=== PATIENT | female | born 1985 | race Hispanic/Latino ===

== ENCOUNTER 2017-08-06 11:40 | Emergency (ER) | payer OTHER ==
[2017-08-06 11:49] VITALS: BMI 28.1
[2017-08-06] MEDS ORDERED: Sodium Chloride 0.9% 1,000 ML IV STA (12:23)
[2017-08-06 13:05] LABS: URINE BILIRUBIN NEGATIVE (NEGATIVE); URINE BLOOD MODERATE (NEGATIVE); URINE GLUCOSE (UA) NEGATIVE (NEGATIVE); URINE KETONE NEGATIVE (NEGATIVE); URINE LEUKOCYTE ESTERASE NEGATIVE Leu/uL (NEGATIVE); URINE PROTEIN NEGATIVE mg/dL (<30 mg/dL); URINE UROBILINOGEN 0.2 E.U./dL (<1 E.U./dL)
[2017-08-06 13:08] LABS: URINE APPEARANCE CLEAR (CLEAR); URINE COLOR LIGHT YELLOW (YELLOW)
[2017-08-06 13:11] LABS: BASO # 0.04 K/mm3 (0.0-2.0); BASO % 0.3 % (0.0-3.0); EOS # 0.2 (0.0-0.7); EOS % 1.6 % (1.5-5.0); GRAN # 9.16 (1.4-6.5); HEMATOCRIT 37.6 % (36.0-48.0); LYMPH # 2.7 (1.2-3.4); LYMPH % 20.7 % (22.0-35.0); MEAN CELL VOLUME 82.3 fl (80.0-105.0); MEAN CORPUSCULAR HEMOGLOBIN 29.5 pg (25.0-35.0); MEAN CORPUSCULAR HGB CONC 35.9 g/dl (31.0-37.0); MEAN PLATELET VOLUME 8.9 fl (7.0-11.0); MONO # 0.8 (0.1-0.6); MONO % 6.4 % (1.0-6.0); RED CELL DISTRIBUTION WIDTH 12.2 % (11.5-14.5); WHITE BLOOD COUNT 12.9 10^3/ul (4.5-11.0)
[2017-08-06 13:14] LABS: INR 1.06 (0.93-1.08); PARTIAL THROMBOPLASTIN TIME 29.6 Seconds (25.1-36.5)
--- NOTE | 2017-08-06 13:16 | ED PDOC ---
Arrival/HPI - History of Present Illness Time/Duration: 1-3 hours Symptom Onset: Sudden Activities at Onset: Light Context: Walking <Gabino Rowan - Last Filed: 08/06/17 19:50> - General Historian: Patient <Carlo Palafox DO - Last Filed: 08/06/17 20:56> - General Chief Complaint: Female Genitourinary Time Seen by Provider: 08/06/17 12:22 - History of Present Illness Narrative History of Present Illness (Text): 08/06/17 13:12 Mrs. Goddard is a 32 year old at 8w3d gestation (AMTEO of 03/15/18 by FDLMP of 06/08/17) with no significant past medical history who presents to the [facility] with a chief complaint of vaginal bleeding that started approximately 90 minutes [employer]VIL WORK[employer]. Patient reports that she was walking her dog in the park when she suddenly experienced vaginal bleeding that she reports as "quite a bit" and enough to soak her clothes. She denies any non-bloody vaginal discharge, malodorous discharge, vaginal itching, abdominal cramping, LOF, pain with urination, hematuria, hematochezia, or recent sexual intercourse. Patient also denies fever, chills, headache, changes in her vision, sore throat, chest pain, SOB, cough, abdominal pain, N/V/D/C, rashes or any numbness/tingling/weakness. OB History: Current Gestation: details in HPI Patient has regular follow up with her grain blender History: Triad: 15/regular/5 days Denies history of STI's, fibroids, ovarian cysts, history of abnormal pap smears or any personal or family history of breast/uterine/ovarian/vaginal/ cervical malignancies (Gabino Rowan) Past Medical History - Provider Review Nursing Documentation Reviewed: Yes - Travel History Have you recently traveled outside [place] w/in the past 3 mons?: No - Past History Past History: No Previous - Infectious Disease Hx of Infectious Diseases: None - Tetanus Immunization Tetanus Immunization: Up to Date - Reproductive Menopause: No - Past Medical History Past Medical History: No Previous - Psychiatric Hx Substance Use: No <Gabino Rowan - Last Filed: 08/06/17 19:50> Family/Social History - Physician Review Nursing Documentation Reviewed: Yes Family/Social History: No Known Family HX Smoking Status: Never Smoked Hx Alcohol Use: No Hx Substance Use: No <Gabino Rowan - Last Filed: 08/06/17 19:50> Allergies/Home Meds <Gabino Rowan - Last Filed: 08/06/17 19:50> <Carlo Palafox DO - Last Filed: 08/06/17 20:56> Allergies/Adverse Reactions: Allergies No Known Allergies Allergy (Verified 08/06/17 11:49) Home Medications: Home Meds Medication Instructions Recorded Confirmed No Known Home Med 08/06/17 08/06/17 Review of Systems - Physician Review All systems were reviewed & negative as marked: Yes - Review of Systems Constitutional: Normal. absent: Fevers, Night Sweats Eyes: Normal. absent: Vision Changes ENT: Normal Respiratory: Normal. absent: SOB, Cough Cardiovascular: Normal. absent: Chest Pain, Palpitations Gastrointestinal: Normal. absent: Abdominal Pain, Constipation, Diarrhea, Nausea, Vomiting, Hematochezia Genitourinary Female: Vaginal Bleeding (As per HPI). absent: Normal, Dysuria, Frequency, Hematuria, Vaginal Discharge Musculoskeletal: Normal. absent: Arthralgias, Back Pain, Neck Pain, Joint Swelling, Myalgias Skin: Normal. absent: Rash Neurological: Normal. absent: Headache Endocrine: Normal Hemo/Lymphatic: Normal Psychiatric: Normal <Gabino Rowan - Last Filed: 08/06/17 19:50> Physical Exam Vital Signs Reviewed: Yes Temperature: Afebrile Blood Pressure: Normal Pulse: Regular Respiratory Rate: Normal Appearance: Positive for: Well-Appearing, Non-Toxic, Comfortable Pain Distress: None Mental Status: Positive for: Alert and Oriented X 3 - Systems Exam Head: Present: Atraumatic, Normocephalic Pupils: Present: PERRL Extroacular Muscles: Present: EOMI Conjunctiva: Present: Normal Mouth: Present: Moist Mucous Membranes Neck: Present: Normal Range of Motion, Trachea Midline. No: Meningeal Signs, MIDLINE TENDERNESS, Paraspinal Tenderness, JVD, Lymphadenopathy Respiratory/Chest: Present: Clear to Auscultation, Good Air Exchange. No: Respiratory Distress, Accessory Muscle Use Cardiovascular: Present: Regular Rate and Rhythm, Normal S1, S2. No: Murmurs Abdomen: Present: Normal Bowel Sounds. No: Tenderness, Distention, Peritoneal Signs Back: Present: Normal Inspection. No: CVA Tenderness, Midline Tenderness, Paraspinal Tenderness Upper Extremity: Present: Normal Inspection. No: Cyanosis, Edema Lower Extremity: Present: Normal Inspection. No: Edema Neurological: Present: GCS=15, CN II-XII Intact, Speech Normal Skin: Present: Warm, Dry, Normal Color. No: Rashes Lymphatic: No: Cervical Adenopathy Psychiatric: Present: Alert, Oriented x 3, Normal Insight, Normal Concentration <Gabino Rowan - Last Filed: 08/06/17 19:50> Vital Signs Temp Pulse Resp BP Pulse Ox 08/06/17 16:44 98.4 F 77 16 125/78 99 08/06/17 16:20 74 18 134/68 100 08/06/17 16:00 98.5 F 74 16 134/68 99 08/06/17 15:45 88 120/78 99 08/06/17 13:00 86 18 118/71 98 08/06/17 11:45 98.1 F 91 H 16 121/78 98 Medical Decision Making - Lab Interpretations I have reviewed the lab results: Yes Interpretation: All labs normal - RAD Interpretation Surgical Assistant Certified: Radiologist <Gabino Rowan - Last Filed: 08/06/17 19:50> <Carlo Palafox DO - Last Filed: 08/06/17 20:56> ED Course and Treatment: 08/06/17 13:18 Impression: 32 year old at 8w3d gestation (MATEO of 03/15/18 by FDLMP of ) with no significant past medical history who presents to the [facility] with a chief complaint of vaginal bleeding that started approximately 90 minutes [employer]VIL WORK[employer] Plan: -CBC, CMP, Lipase, BHCG quant., T&S, Antibody screen, UA -TVUS -1L of NS bolus -Reassess and disposition Prior Visits: No previous visits (Gabino Rowan) 08/06/17 16:00 Patient Seen With Resident: In agreement with resident note which contains more details about the patient. Patient was seen and evaluated with resident. Came up with plan and treatment together. A 32 year old female with no significant past medical history, who is 8w3d , presents to the emergency department for vaginal bleeding that began 90 mins prior to emergency department arrival. The patient's treatment plan includes lab work, transvaginal ultrasound, and to follow up with OBGYN. (Carlo Palafox DO) - Lab Interpretations Lab Results: 08/06/17 12:50 08/06/17 12:50 Lab Results 08/06/17 13:40: Blood Type Confirm O NEGATIVE 08/06/17 13:00: Urine Color Light yellow, Urine Appearance Clear, Urine pH 6.0, Ur Specific Cable <= 1.005, Urine Protein Negative, Urine Glucose (UA) Negative, Urine Ketones Negative, Urine Blood Moderate H, Urine Nitrate Negative , Urine Bilirubin Negative, Urine Urobilinogen 0.2, Ur Leukocyte Esterase Negative, Urine RBC 0 - 2, Urine WBC 0 - 2, Ur Epithelial Cells 0 - 2, Urine Bacteria Trace 08/06/17 12:50: Beta HCG, Quant [id number] H 08/06/17 12:50: Blood Type O NEGATIVE, Antibody Screen Negative, BBK History Checked No verified bt 08/06/17 12:50: Sodium 138, Potassium 3.7, Chloride 101, Carbon Dioxide 27, Anion Gap 14, BUN 11, Creatinine 0.6 L, Est GFR ( Amer) > 60, Est GFR ( Non-Af Amer) > 60, Random Glucose 91, Calcium 10.4, Total Bilirubin 0.6, AST 25 , ALT 37, Alkaline Phosphatase 71, Total Protein 8.3, Albumin 4.7, Globulin 3.6 , Albumin/Globulin Ratio 1.3, Lipase 39 08/06/17 12:50: PT 11.7, INR 1.06, APTT 29.6 08/06/17 12:50: WBC 12.9 H, RBC 4.57, Hgb 13.5, Hct 37.6, MCV 82.3, MCH 29.5, MCHC 35.9, RDW 12.2, Plt Count 335, MPV 8.9, Gran % 71.0 H, Lymph % (Auto) 20.7 L, Camp % (Auto) 6.4 H, Eos % (Auto) 1.6, Baso % (Auto) 0.3, Gran # 9.16 H, Lymph # 2.7, Camp # 0.8 H, Eos # 0.2, Baso # 0.04 - RAD Interpretation Radiology Orders: 08/06/17 12:24 OB TRANSVAGINAL [US] Stat - Medication Orders Current Medication Orders: Discontinued Medications Sodium Chloride (Sodium Chloride 0.9%) 1,000 mls @ 1,000 mls/hr IV .Q1H STA Stop: 08/06/17 13:22 Last Admin: 08/06/17 13:10 Dose: 1,000 mls/hr eMAR Start Stop Document 08/06/17 13:10 MS (Rec: 08/06/17 14:55 MS [id number]) Intravenous Solution Start Date 08/06/17 Start Time 14:55 End Date 08/06/17 End time 15:55 Total Infusion Time 60 <Gabino Rowan - Last Filed: 08/06/17 19:50> - Scribe Statement The provider has reviewed the documentation as recorded by the Scribe <Carlo Palafox DO - Last Filed: 08/06/17 20:56> - Scribe Statement Kathy Plamer Provider Scribe Attestation: All medical record entries made by the Scribe were at my direction and personally dictated by me. I have reviewed the chart and agree that the record accurately reflects my personal performance of the history, physical exam, medical decision making, and the department course for this patient. I have also personally directed, reviewed, and agree with the discharge instructions and disposition. (Carlo Palafox DO) Disposition/Present on Arrival - Present on Arrival Any Indicators Present on Arrival: No History of DVT/PE: No History of Uncontrolled Diabetes: No Urinary Catheter: No History of Decub. Ulcer: No History Surgical Site Infection Following: None - Disposition Have Diagnosis and Disposition been Completed?: Yes Disposition Time: 16:33 Patient Plan: Discharge <Gabino Rowan - Last Filed: 08/06/17 19:50> - Disposition Disposition Time: 13:55 <Carlo Palafox DO - Last Filed: 08/06/17 20:56> - Disposition Diagnosis: Threatened Disposition: HOME/ ROUTINE Condition: STABLE Discharge Instructions (ExitCare): Rho(D) Immune Globulin (By injection), Threatened Miscarriage (ED) Additional Instructions: Mrs. Goddard, thank you for letting us take care of you today. Your provider was Dr. Palafox. You were treated for threatened . The emergency medical care you received today was directed at your acute symptoms. If you were prescribed any medication, please fill it and take as directed. It may take several days for your symptoms to resolve. Return to the Emergency Department if your symptoms worsen, do not improve, or if you have any other problems. Please contact your doctor or call one of the physicians/clinics you have been referred to that are listed on the Patient Visit Information form that is included in your discharge packet. Bring any paperwork you were given at discharge with you along with any medications you are taking to your follow up visit. Our treatment cannot replace ongoing medical care by a primary care provider (PCP) outside of the emergency department. PLEASE FOLLOW UP WITH YOUR OB PHYSICIAN WITHIN ONE WEEK Thank you for allowing the [facility] team to be part of your care today. Referrals: Karin Castillo MD [Primary Care Provider] - Follow up with primary Forms: [employer] (Lebanese)
[2017-08-06 13:18] LABS: URINE BACTERIA TRACE (NEG); URINE EPITHELIAL CELLS 0 - 2 /hpf (0-5); URINE RBC 0 - 2 /hpf (0-2); URINE WBC 0 - 2 /hpf (0-6)
[2017-08-06 13:20] LABS: ALB/GLOB RATIO 1.3 (1.1-1.8); ALKALINE PHOSPHATASE 71 U/L (38-126); ALT/SGPT 37 U/L (7-56); AST/SGOT 25 U/L (14-36); BILIRUBIN,TOTAL 0.6 mg/dL (0.2-1.3); BLOOD UREA NITROGEN 11 mg/dL (7-21); CALCIUM 10.4 mg/dL (8.4-10.5); CARBON DIOXIDE 27 mmol/L (21-33); CHLORIDE 101 mmol/L (98-107); GFR AFRICAN-AMERICAN > 60; GLUCOSE,RANDOM 91 mg/dL (70-110); LIPASE 39 U/L (23-300); POTASSIUM 3.7 mmol/L (3.6-5.0); SODIUM 138 mmol/L (132-148); TOTAL PROTEIN 8.3 g/dL (5.8-8.3)
--- NOTE | 2017-08-06 16:39 | US ---
PROCEDURE: OB Pelvic Ultrasound HISTORY: vaginal bleeding COMPARISON: None available. FINDINGS: UTERUS: Gestational sac: Single intrauterine gestation. Heart rate: 154 bpm. age (Ultrasound estimated): 8 weeks Katarina-gestational hemorrhage: None. Date of delivery (Ultrasound estimated) : 03/18/2018 Uterus measures 7.45 x 4.06 x 5.81 cm. Normal in size and appearance. CERVIX: Long and closed. No cervical abnormality seen. Measures 3.27 cm in length RIGHT OVARY: Not seen LEFT OVARY: Not seen FREE FLUID: None. OTHER FINDINGS: None. IMPRESSION: Single viable intrauterine with a gestational age of 8 weeks.
[2017-08-06 16:45] VITALS: BP 125/78; PULSE 77; RESP 16; TEMP 98.4; O2SAT 99
== END 2017-08-06 16:56 | disposition home or self-care (01) ==
LOC: ED 11:40
DX: O20.0 Threatened abortion (principal); Z3A.08 8 weeks gestation of pregnancy
CPT/HCPCS: 76817; 80053; 81001; 83690; 84702; 85025; 85610; 85730; 86850; 86900; 87086; 96360; 99284; J2792; J7040